=== PATIENT | male | born 1965 | race Caucasian/White ===

== ENCOUNTER 2018-02-05 21:28 | Emergency (ER) | payer OTHER ==
[~2018-02-05 21:28] MED LIST: ALBU90I PO; ALBU90OI; ALBU90OI INH; CEPH500 PO; CLIN150 PO; CLON.2; Cleocin HCl300 MG PO; DIPH50 PO; DOXY100 PO; ERYT250 PO; ESOM20; FLUO10 PO; HYDACE5 PO; IBUP600 PO; KETO10 PO; METO10 PO; METO50 PO; METR500 PO; NITR.4SL SL; Naprosyn500 MG PO; OLAN20 MM; OLAN5 PO; OMEP20ER PO; ONDA4 PO; OXYACE5T PO; OXYC10TA19 PO; PERM5TC TOP; PHENY100ER; PHENY100ER PO; PRED10 PO; PROM25 PO; PROM25S PR; RANI150 PO; RXCLIN PO; TAMS.4ER PO; TRIA80TC TOP; Vibramycin100 MG PO; Zithromax250 MG PO
== END 2018-02-05 22:23 | disposition left against medical advice (07) ==
LOC: ER 21:28
DX: Z53.21 Procedure and treatment not carried out due to patient leaving prior to being seen by health care provider (principal)

== ENCOUNTER 2020-01-12 23:20 | Emergency (ER) | payer OTHER ==
[~2020-01-12] VITALS: Ht 172.7 cm; Wt 57.6 kg
== END 2020-01-13 03:48 | disposition home or self-care (01) ==
LOC: ER 23:20
DX: R07.81 Pleurodynia (principal); F25.9 Schizoaffective disorder, unspecified; I25.2 Old myocardial infarction; J45.909 Unspecified asthma, uncomplicated; G40.909 Epilepsy, unspecified, not intractable, without status epilepticus; Z79.899 Other long term (current) drug therapy; F17.210 Nicotine dependence, cigarettes, uncomplicated; Z88.0 Allergy status to penicillin; Z88.2 Allergy status to sulfonamides; Z88.8 Allergy status to other drugs, medicaments and biological substances; Z88.6 Allergy status to analgesic agent
CPT/HCPCS: 71046; 99283-25; A9270

== ENCOUNTER → 2025-10-01 | Outpatient (CLI) | payer SELFPAY | END | disposition home or self-care (01) | LOC: LAB 18:38 → LAB SHORT 18:38 | DX: L02.414 Cutaneous abscess of left upper limb (principal) | CPT/HCPCS: 87070; 87077; 87147; 87186; 87205 ==